=== PATIENT | female | born 1945 | race Caucasian/White ===

== ENCOUNTER → 2017-01-02 | Day surgery (SDC) | payer MEDICARE ==
[~2017-01-02] MED LIST: CALTRATE 600 W-1 TAB PO; LISINOPRIL10 MG PO; LORAZEPAM1 MG PO; LORTAB 7.5-5001 TAB PO; PAROXETINE HCL25 MG PO; PAXIL CR25 MG PO; PHENERGAN25 MG PO; VITAMIN D2000 UNI1 PO
--- NOTE | ~2017-01-02 | OR ---
Unit #: [id number] #: [id number] Patient: HOWARD KOROMA [id number] [facility] [address]. [place], [place] [address] [id number] O MR#: [id number] NAME: HOWARD KOROMA ROOM: Date of Procedure: 01/02/2017 Admission Date: 01/02/2017 Surgeon: Jaquan Hickman M.D. : 1945 Attending Physician: Jaquan Hickman M.D. Primary Care Physician: Bladimir Mack M.D. OPERATIVE REPORT PREOPERATIVE DIAGNOSIS Family history of colon cancer. POSTOPERATIVE DIAGNOSES 1. Ascending colon polyp x1. 2. Sigmoid diverticulosis. PROCEDURE PERFORMED Colonoscopy to cecum with cold biopsy forceps polypectomy x1. ANESTHESIA Monitored anesthesia. INDICATIONS A 71-year-old female with a strong family history of colon cancer, is due for surveillance. DESCRIPTION OF PROCEDURE The patient was admitted to [facility], positively identified and transported to the endoscopy suite. 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 On rectal examination, there was no significant anorectal pathology. Colonoscope was passed through the anal verge throughout the extent of the colon to the cecum. On antegrade and retrograde visualization, a 1 cm polyp was identified behind the fold in the ascending colon, it was completely excised using multiple bites of cold biopsy forceps. Post polypectomy hemostasis was adequate. As we came back in a retrograde fashion, she had a few scattered diverticula in the sigmoid colon, but no evidence of diverticulitis. The rest of the endoscopic evaluation was normal. In particular, there was no internal hemorrhoidal disease. The patient tolerated the procedure well, and was transported to the recovery room in stable condition. Findings were discussed with her . We will call with the results of the pathological evaluation of the polyp and recommend followup at that time. Dictated by... Jaquan Hickman M.D. RS/melbal Unit #: [id number] #: [id number] Patient: HOWARD KOROMA TD: 01/02/2017 11:40 JOB #: [id number] OPERATIVE REPORT Page 1 of 1 X Jaquan Hickman MD PROCEDURE OPERATIVE NOTE
--- NOTE | ~2017-01-02 | HP ---
Unit #: [id number] #: [id number] Patient: HOWARD KOROMA [id number] [address] [address] [id number] O MR#: [id number] NAME: HOWARD KOROMA. ROOM: Age: 71 Sex: F Admission Date: 01/02/2017 : 1945 Attending Physician: Jaquan Hickman M.D. Primary Care Physician: Bladimir Mack M.D. HISTORY AND PHYSICAL HISTORY AND EXAM Ms. Koroma is a 71-year-old female who is due for surveillance colonoscopy due to a strong family history of colon cancer in several siblings. Her father also had colon cancer. She otherwise is asymptomatic. PAST MEDICAL HISTORY Depression, anxiety, stress urinary incontinence, hypertension. She is status post hysterectomy and benign breast biopsies. ALLERGIES No allergies to medications. MEDICATIONS Paroxetine, lorazepam, and lisinopril. IMMUNIZATIONS She has not had a recent flu or a pneumonia vaccine. FAMILY HISTORY Lung cancer, colon cancer, heart disease, Alzheimer dementia. SOCIAL HISTORY , two children. Rarely drinks alcohol. A pack a day smoker. She is retired. REVIEW OF SYSTEMS Otherwise unremarkable. PHYSICAL EXAMINATION GENERAL: She is awake, alert and oriented. HEENT: Unremarkable. CARDIAC: Regular rhythm. LUNGS: Clear. ABDOMEN: Soft. EXTREMITIES: No edema. NEUROLOGIC: Grossly intact. ASSESSMENT AND PLAN 71-year-old female with a strong family history of colon cancer, due for surveillance colonoscopy. I discussed the procedure with her including risks, benefits, complications, bowel prep, she understands and agrees to proceed. Unit #: [id number] #: [id number] Patient: HOWARD KOROMA Dictated by Lazaro Fay/jacob TD: 01/02/2017 08:03 JOB #: [id number] HISTORY AND PHYSICAL Page 1 of 1 X Jaquan Hickman MD HISTORY AND PHYSICAL
== END | disposition home or self-care (01) ==
LOC: COPS 05:30
DX: Z12.11 Encounter for screening for malignant neoplasm of colon (principal); D12.2 Benign neoplasm of ascending colon; K57.30 Diverticulosis of large intestine without perforation or abscess without bleeding; I10 Essential (primary) hypertension; K21.9 Gastro-esophageal reflux disease without esophagitis; F41.9 Anxiety disorder, unspecified; F32.9 Major depressive disorder, single episode, unspecified; F17.210 Nicotine dependence, cigarettes, uncomplicated; Z80.0 Family history of malignant neoplasm of digestive organs; Z98.41 Cataract extraction status, right eye; Z98.42 Cataract extraction status, left eye; Z90.710 Acquired absence of both cervix and uterus; Z98.890 Other specified postprocedural states
CPT/HCPCS: 88305; J2405